=== PATIENT | male | born 1990 | race Caucasian/White ===

== ENCOUNTER 2017-05-07 21:28 | Emergency (ER) | payer MEDICAID, OTHER ==
[~2017-05-07] VITALS: Ht 182.9 cm; Wt 77.1 kg
[2017-05-07 21:33] VITALS: BP 110/57
== END 2017-05-07 22:36 | disposition home or self-care (01) ==
LOC: ER 21:29
DX: R06.00 Dyspnea, unspecified (principal); F12.10 Cannabis abuse, uncomplicated; J45.909 Unspecified asthma, uncomplicated
CPT/HCPCS: 71010-TC; A4606; Z7610